=== PATIENT | female | born 1970 | race Caucasian/White ===

== ENCOUNTER 2020-07-05 21:10 | Inpatient (IN) | payer BC ==
[~2020-07-05 21:10] MED LIST: fentaNYL Citrate/PF 2,000 MCG in Sodium Chloride 0.9% 60 ML IV PRN
--- NOTE | 2020-07-05 22:30 | RAD ---
LEFT FOOT 3 VIEWS: Date: 07/05/2020 PROVIDED CLINICAL HISTORY: Pain status post injury. FINDINGS: There are displaced fractures of the second, third, and fourth metatarsal necks. There are displaced fractures involving the bases of the second, third and fourth metatarsals. There is a nondisplaced fr acture involving the base of the first metatarsal laterally. Alignment at the Lisfranc joint appears maintained. Nondisplaced fracture of the cuboid is also suspected. IMPRESSION: Metatarsal and cuboid fractures as above. POS: ARMANDO
--- NOTE | 2020-07-05 22:31 | RAD ---
LEFT ANKLE 3 VIEWS: Date: 07/05/2020 PROVIDED CLINICAL HISTORY: Pain status post injury. FINDINGS: There is no evidence for fracture or other acute osseous abnormality involving the ankle. Cuboid and first through fourth metatarsal base fractures are demonstrated. IMPRESSION: No evidence for an acute osseous abnormality involving the ankle. Midfoot and forefoot fractures as above. POS: ARMANDO
--- NOTE | 2020-07-05 22:33 | RAD ---
RIGHT KNEE RADIOGRAPHS 4 VIEWS: Date: 07/05/2020 PROVIDED CLINICAL HISTORY: Pain status post injury. FINDINGS: Patellofemoral joint space narrowing and multiple intra-articular bodies are seen. There is no eviden ce for fracture or other acute osseous abnormality. If there is persistent clinical concern, conserva tive management and follow-up imaging are advised. Patella laura is demonstrated. IMPRESSION: As above. POS: ARMANDO
[2020-07-05] MEDS ORDERED: Lorazepam 2 MG/ML VIAL ONE (22:38)
[2020-07-05] MEDS ORDERED: Ketorolac Tromethamine 30 MG/ML VIAL ONE (22:38)
--- NOTE | 2020-07-05 22:43 | RAD ---
PORTABLE CHEST: Date: 07/05/2020 PROVIDED CLINICAL HISTORY: Preop. FINDINGS: Cardiac and mediastinal silhouette is within normal limits. Lungs appear clear. No pleural fluid or p neumothorax apparent. IMPRESSION: No evidence for an acute cardiopulmonary process. POS: ARMANDO
[2020-07-05 23:11] LABS: #Eosinphils 0.2 thou/uL (0.0-0.7); #Lymphocytes 1.4 thou/uL (1.20-3.40); #Monocytes 0.5 thou/uL (0.11-0.59); #Neutrophils 8.3 thou/uL (1.40-6.50); %Basophils 0.2 % (0.0-1.0); %Eosinophils 1.5 % (0.0-10.0); %Lymphocytes 13.5 % (21.0-51.0); %Monocytes 4.9 % (0.0-10.0); %Neutrophils 79.9 % (42.0-75.0); Hemoglobin 10.6 g/dL (12.0-16.0); Mean Corpuscular HGB CONC 32.3 g/dL (32.0-36.0); Mean Corpuscular Hemoglobin 24.3 pg (27.0-31.0); Mean Corpuscular Volume 75.2 fL (78.0-98.0); Mean Platelet Volume 7.9 fL (7.4-10.4); Platelet Count 259 thou/uL (130-400); RBC Distribution Width 14.8 % (11.5-14.5); Red Blood Cell (RBC) Count 4.37 mill/uL (4.20-5.40); White Blood Cell (WBC) Count 10.4 thou/uL (4.8-10.8)
[2020-07-05 23:18] LABS: INR-International Normal Ratio 1.1; PTT 28.1 sec (22.9-36.1); Prothrombin Time 13.9 sec (12.0-14.7)
[2020-07-05 23:32] LABS: ALT (SGPT) 9 U/L (8-55); AST (SGOT) 14 U/L (5-34); Albumin 3.9 g/dL (3.5-5.0); Alkaline Phosphatase 67 U/L (40-110); Anion Gap 15 mmol/L (10-20); BUN (Urea Nitrogen) 15 mg/dL (7.0-18.7); Bilirubin, Total 0.3 mg/dL (0.2-1.2); CK (CPK) 172 U/L (29-168); Calc. Creatinine Clearance 0 mL/min (70-130); Calcium 8.6 mg/dL (7.8-10.44); Carbon Dioxide 23 mmol/L (22-29); Chloride 106 mmol/L (98-107); Estimated GFR-MDRD 61; Globulin 2.5 g/dL (2.4-3.5); Glucose 137 mg/dL (70-105); Potassium 3.6 mmol/L (3.5-5.1); Protein, Total 6.4 g/dL (6.0-8.3); Sodium 140 mmol/L (136-145)
[2020-07-05] MEDS ORDERED: HYDROmorphone 0.5 MG/0.5 ML SYRINGE ONE (23:35)
[2020-07-05] MEDS ORDERED: diphenhydrAMINE 25 MG CAP PO PRN ×2 (23:44→23:46)
[2020-07-05] MEDS ORDERED: diphenhydrAMINE 50 MG/ML VIAL IM PRN ×2 (23:44→23:46)
[2020-07-05] MEDS ORDERED: Naloxone HCl 0.4 mg/ml Vial IV PRN ×2 (23:44→23:46)
[2020-07-05] MEDS ORDERED: Promethazine HCl 25 MG/ML VIAL IM PRN ×2 (23:44→23:46)
[2020-07-05] MEDS ORDERED: Ondansetron PF 4 MG/2 ML Vial IVP PRN ×2 (23:44→23:46)
[2020-07-05] MEDS ORDERED: Zolpidem Tartrate 5 MG TAB PO PRN ×2 (23:44→23:46)
[2020-07-05] MEDS ORDERED: diphenhydrAMINE 50 MG/ML VIAL IVP PRN ×2 (23:44→23:46)
[2020-07-05] MEDS ORDERED: Communication Order-Pharmacy FS SCH ×2 (23:45)
[2020-07-06] MEDS ORDERED: Dextrose 50% Abboject 50 ML SYRINGE SLOW IVP PRN (01:12)
[2020-07-06] MEDS ORDERED: Dextrose 5% in Water 1,000 ML IV PRN (01:12)
[2020-07-06] MEDS ORDERED: Ondansetron PF 4 MG/2 ML Vial IVP PRN (01:12)
[2020-07-06] MEDS ORDERED: Ondansetron ODT 4 MG TAB PO PRN (01:12)
[2020-07-06 01:24] VITALS: BMI 41.0
[2020-07-06] MEDS: Sodium Chloride 0.9% 1,000 ML IV SCH ×2 (01:40→11:05)
--- NOTE | 2020-07-06 01:40 | HP ---
REQUESTING PHYSICIAN: David Ring MD ATTENDING SURGEON: Dr. Do. CONSULTATION: Orthopedics, Dr. Aguilar. HISTORY OF PRESENT ILLNESS: The patient is a 50-year-old woman, who was climbing up on a small step ladder when she got her foot caught in the hinge piece and fell backwards causing her to plantarflex her foot. She had immediate pain, was unable to ambulate. Her called 911 and she was brought to the emergency department, where she underwent evaluation and examination and was noted to have multiple metatarsal fractures of her left foot. The patient had a witnessed fall. She did not lose consciousness. She had no syncopal events prior to. We were asked to evaluate the patient for admission and obtain Orthopedic consultation. ALLERGIES: NONE. CURRENT MEDICATIONS: None. PAST MEDICAL HISTORY: Fractures to L4 and L5 as a young adult, gallstones. PAST SURGICAL HISTORY: , L4-L5 instrumentation, and cholecystectomy. SOCIAL HISTORY: The patient denies drug, tobacco, or alcohol use. 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 REVIEW OF SYSTEMS: A 10-point review of systems is negative as otherwise stated. PHYSICAL EXAMINATION: VITAL SIGNS: Blood pressure 116/75, heart rate 89, respirations 18, oxygen saturation is 98% on 2 L via nasal cannula, and temperature is 97.7. GENERAL: The patient is resting in bed. She upon my initial exam was very uncomfortable. She otherwise was awake, alert, conversant, appropriate. [place] Coma Scale is 15. HEENT: Head is normocephalic. Eyes, extraocular motion is intact. PERRLA bilaterally. Ears are atraumatic without discharge. Nose is atraumatic without discharge. Oropharynx is clear. NECK: Nontender. Trachea is midline with no JVD. CHEST: Clear to auscultation with good inspiratory and expiratory effort. HEART: Regular rate and rhythm. ABDOMEN: Soft, flat, nontender with active bowel sounds. PELVIS: Stable. EXTREMITIES: Neurovascularly intact x4. Left lower extremity has global swelling to the mid and forefoot. The patient is extremely tender to palpation to touch and to flexion or extension of her toes. The patient was getting medicated at the time of my exam. I did take her splint completely off to relieve any pressure that may be ongoing in light of her expanding hematoma. This definitely helped and the patient became more comfortable. LABORATORY FINDINGS: White blood cell count 10.4, hemoglobin 10.6, hematocrit 32.8, platelets 259. Sodium 140, potassium 3.6, chloride 106, CO2 of 23, BUN is 15, creatinine 0.97, glucose 137. LFTs are unremarkable. INR 1.1. RADIOGRAPHS: AP chest x-ray shows no evidence of acute cardiopulmonary process. Views of the right knee shows no evidence of fracture or acute osseous abnormality. Views of the left ankle show no evidence of acute osseous abnormality involving the ankle. There are midfoot and forefoot fractures noted. Views of the left foot show metatarsal and cuboid fractures. ASSESSMENT: 1. Status post ground level fall. 2. Multiple left midfoot and forefoot fractures. PLAN: Plan will be to admit the patient to the surgical floor. We have asked Anesthesia to provide her with a DATA CAPTURE CLERK tonight. We will monitor closely for compartment syndrome, albeit rare in this situation. We will keep the patient n.p.o. She will have pulmonary toilet, gastritis and mechanical VTE prophylaxis. Dr. Aguilar was made aware of this patient. The evaluation, examination, laboratory, and radiographic findings were discussed with attending surgeon after this dictation. Job ID: [id number]
[2020-07-06] MEDS ORDERED: Ketorolac Tromethamine 30 MG/ML VIAL IVP PRN (08:25)
--- NOTE | 2020-07-06 08:55 | CON ---
DATE OF CONSULTATION: CONSULTING PROVIDER: Justin Ayoub PA-C CHIEF COMPLAINT: Left foot pain. HISTORY OF PRESENT ILLNESS: Ms. Moreno is a 50-year-old female, who has injured herself last night. She fell from a ladder. Her left leg got trapped in the ladder. She landed hard and hit her right knee as well. She had severe pain in her left foot. X-rays have been taken, which have shown multiple fractures of the left foot. She has been admitted for pain control. She has been elevating her foot. She is feeling somewhat better this morning. She has severe swelling of the foot. She has had pain control through the night. She is on a TRANSCRIPT CLERK currently. ALLERGIES: NO KNOWN DRUG ALLERGIES. REVIEW OF SYSTEMS: Positive for left foot pain and right knee pain. Otherwise, negative 10-point review of systems. PAST MEDICAL HISTORY: Of previous fracture of L4 and L5 and cholecystitis. PAST SURGICAL HISTORY: Of cholecystectomy, , and L4-5 surgery. SOCIAL HISTORY: The patient denies tobacco, alcohol, or drug use. IMAGES: X-rays of the left foot demonstrate 2nd, 3rd, and 4th metatarsal neck fractures. The patient also has fractures of the 2nd, 3rd, and 4th metatarsal bases. The Lisfranc joint is not significantly widened. There is fracture of the base of the 2nd metatarsal, however. The cuboid looks abnormal with fracture as well. There is no dislocation. Overall alignment is preserved. Right knee x-ray shows evidence of osteoarthritis with narrowing of the patellofemoral joint, but no acute findings. PHYSICAL EXAMINATION: VITAL SIGNS: Temperature is 98.2, pulse is 69, respiratory rate of 18, oxygen saturation is 98%, and blood pressure is 97/63. GENERAL: She is alert and oriented, no apparent distress. RESPIRATORY: Breathing comfortably. ABDOMEN: Soft, nontender, nondistended. MUSCULOSKELETAL: The patient's right lower extremity has pain along the MCL. She has some pain with valgus stress. There is mild ecchymosis. The knee is ligamentously stable. No significant effusion. Left foot has a large amount of swelling. The skin is somewhat tight. She is able to gently flex and extend the toes. She reports feeling paresthesias to light touch of the lesser toes, but feels the greater toe normally. She is elevating the foot. No laceration or openings. IMPRESSION: Fall from ladder with left foot fractures including metatarsal fractures and cuboid. PLAN: At this point, I would like to obtain a CT scan of the foot to better evaluate the bony injury. I think she can be treated nonoperatively most likely. She will need strict elevation of the foot. We will place her in a bulky Hart dressing. She will need pain control. She can go ahead and eat and drink today. She likely will need to be here again tonight until her pain is under better control. She will need DVT prophylaxis. We will continue to follow. Job ID: [id number]
[2020-07-06] MEDS ORDERED: HYDROmorphone 0.5 MG/0.5 ML SYRINGE SLOW IVP SCH (11:00)
[2020-07-06] MEDS: Cyclobenzaprine 10 MG TAB PO PRN (11:02)
--- NOTE | 2020-07-06 11:39 | CT ---
CT LEFT FOOT: Date: 07/06/2020 PROVIDED CLINICAL HISTORY: Fracture. FINDINGS: There are transversely oriented fractures of the second, third, and fourth metatarsal necks. There is conspicuous plantar displacement of the metatarsal heads with rotation of the metatarsal heads in a plantar direction. There is a comminuted nondisplaced fracture involving the cuboid, which is intra-articular at the Lis franc joint. There is a displaced intra-articular fracture involving the plantar-medial base of the fourth metatar joaquin. There is a comminuted, intra-articular facture involving the base of the third metatarsal with about 3.0 mm of interarticular gap. There is a comminuted, not significantly displaced intra-articular fracture involving the base of the second metatarsal. There is a nondisplaced intra-articular fracture involving the medial aspects of the base of the firs t metatarsal. Alignment at the Lisfranc joint appears preserved in the absence of weightbearing. No additional frac ture is evident. IMPRESSION: Metatarsal and cuboid fractures as described. POS: ARMANDO
[2020-07-06] MEDS: Ketorolac Tromethamine 30 MG/ML VIAL IVP SCH ×3 (11:42→23:51)
[2020-07-06] MEDS: Acetaminophen 500 MG TAB PO SCH ×3 (13:14→23:50)
--- NOTE | 2020-07-06 14:12 | PRG ---
DATE OF SERVICE: 07/06/2020 SUBJECTIVE: Ms. Moreno is a 50-year-old woman, post injury day #1, status post fall with multiple mid and forefoot fractures. She is awake and alert this morning reporting severe left foot pain. The left foot has been immobilized in a splint and has been examined by Orthopedic Surgery this morning with the splint off and compartment syndrome has been excluded. Her [place] Coma Scale is 15. She otherwise moves all extremities. OBJECTIVE: VITAL SIGNS: This morning include blood pressure is 97/63, pulse is 69, respiratory rate is 18, temperature is 98.2 degrees Fahrenheit, and oxygen saturation is 98% on room air. HEENT: Reveals normocephalic and atraumatic. HEART: Reveals regular rate and rhythm. LUNGS: Clear to auscultation bilaterally. Her breathing is regular and unlabored. ABDOMEN: Soft, nontender, and nondistended. EXTREMITIES: Reveals 2+ radial and right pedal pulses present. Left foot is immobilized in a long splint. She has good capillary refill in all extremities. NEUROLOGIC: Reveals no focal deficits present. IMPRESSION: 1. Post injury day #1 status post fall. 2. Multiple left mid and forefoot fractures. 3. Acute post traumatic neuropathic pain. PLAN: We will revise current pain regimen and include coverage for neuropathic pain. The patient is certainly hemodynamically stable for any plan for definitive orthopedic surgical repair of the left foot fractures at the discretion of Orthopedic Surgery. Job ID: [id number]
[2020-07-06] MEDS: Pregabalin 50 MG CAP PO SCH ×2 (15:15→20:07)
[2020-07-06] MEDS: traMADol HCl 50 MG TAB PO SCH ×2 (17:50→23:50)
--- NOTE | 2020-07-06 19:36 | OP ---
DATE OF PROCEDURE: 07/06/2020 PREPROCEDURAL DIAGNOSIS: Left foot, midfoot fractures. POSTPROCEDURAL DIAGNOSIS: Left foot, midfoot fractures. OPERATIVE PROCEDURE: Application of short-leg splint, left lower extremity. 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 PROCEDURE IN DETAIL: The patient was positioned appropriately in supine position. The left lower extremity was then wrapped in a stockinette, overwrapped with Webril. Posterior splint was placed, wrapped with Goyo bandages and allowed to cure. The patient had poor pain tolerance and she was in a little bit of equinus and little plantar flexion, not optimal positioning, but her pain was difficult to manage throughout the procedure. The patient remained neurovascularly intact both before, during, and after the procedure. Job ID: [id number]
[2020-07-06] MEDS ORDERED: FLU VACC QS2020-21(6MOS UP)/PF 60 MCG/0.5 ML SYRINGE IM ONE (21:00)
[2020-07-07] MEDS: Calcium Carbonate 500 MG ChewTAB PO PRN ×2 (03:56→06:20)
[2020-07-07] MEDS: traMADol HCl 50 MG TAB PO SCH ×4 (06:15→23:31)
[2020-07-07] MEDS: Acetaminophen 500 MG TAB PO SCH ×4 (06:16→23:30)
[2020-07-07] MEDS: Ketorolac Tromethamine 30 MG/ML VIAL IVP SCH ×2 (06:16→13:11)
[2020-07-07] MEDS: Pregabalin 50 MG CAP PO SCH ×3 (08:56→20:35)
[2020-07-07] MEDS: Polyethylene Glycol 3350 17 GM Packet PO SCH (08:57)
[2020-07-07] MEDS: Senokot S 8.6-50 MG TAB PO SCH ×2 (08:57→20:35)
[2020-07-07] MEDS ORDERED: Albuterol Sulfate 2.5 mg/3 ml Neb NEB PRN (18:56)
[2020-07-07] MEDS: Cyclobenzaprine 10 MG TAB PO PRN (20:34)
[2020-07-07] MEDS ORDERED: Enoxaparin Sodium 40 MG/0.4 ML SYRINGE SC SCH (21:00)
[2020-07-07] MEDS: Ibuprofen 800 MG TAB PO SCH (21:20)
--- NOTE | 2020-07-08 05:10 | PRG ---
DATE OF SERVICE: 07/07/2020 SUBJECTIVE: Ms. Moreno is a 50-year-old female, now post-injury day #2 after a fall with multiple mid and forefoot fractures. She is awake and alert this morning and appears much more comfortable than yesterday. She does continue to report left foot pain. It is improved when she is at rest, but is increased when she has her foot in the dependent position, particularly when using assistive devices as provided by Physical Therapy. Yesterday, Orthopedic Surgery replaced her splint, which was a particularly painful experience for the patient. This morning, her pain is doing somewhat better. She is no longer using a CATTLE DRIVER. She is on several scheduled oral agents. Today, she reports that she feels spasming in her foot occasionally, which is sharp, stabbing, and severe. She reports that she did not eat much yesterday because she was n.p.o., waiting to find out if she would need a procedure and with the use of the CATTLE DRIVER medication, she did not really feel like eating. This morning, she has not yet eaten breakfast, but she does plan to eat lunch. She is voiding normally. She has not yet had a bowel movement. She would ideally like to go home upon discharge, although it is not yet clear whether or not she will be able to do this safely. OBJECTIVE: VITAL SIGNS: Temperature 98.3, pulse 70, respirations 16, O2 of 95% on room air, and blood pressure 104/69. GENERAL: She is awake, alert, resting comfortably in bed. GCS 15. HEENT: She is normocephalic and atraumatic on the head. CHEST: Her breathing is regular and unlabored with equal rise and fall of the chest. ABDOMEN: Soft, nontender. EXTREMITIES: Her left foot and lower leg are in a splint this morning. She is otherwise neurovascularly intact and moving all 4 extremities. NEUROLOGIC: She has no focal deficits and is alert and oriented x3. ASSESSMENT: 1. Post-injury day #2 status post fall. 2. Fracture of the second, third, and fourth metatarsal neck. 3. Fracture of the second, third, and fourth metatarsal bases. 4. Cuboid fracture. 5. Acute posttraumatic neuropathic pain. PLAN: We will continue with Flexeril for spasm-like pain as needed. Discussed with patient that this medication is as needed and not scheduled. If she feels like she needs it, she will need to ask for it. Today, we will talk with Case Management regarding disposition. The patient would like to go home upon discharge, but ultimately may need inpatient rehab for a safe discharge in order to regain some strength and to have adequate pain control in the process. The patient expresses understanding of this plan. We will also start a bowel regimen today. Pending formal recommendation that this will be a nonoperative fracture, we would also like to begin DVT prophylaxis on this patient. Job ID: [id number]
[2020-07-08] MEDS: traMADol HCl 50 MG TAB PO SCH ×2 (06:07→12:44)
[2020-07-08] MEDS: Ibuprofen 800 MG TAB PO SCH ×2 (06:08→14:41)
[2020-07-08] MEDS: Acetaminophen 500 MG TAB PO SCH ×2 (06:08→12:43)
[2020-07-08] MEDS: Pregabalin 50 MG CAP PO SCH ×2 (09:24→14:41)
[2020-07-08] MEDS: Senokot S 8.6-50 MG TAB PO SCH (09:24)
[2020-07-08] MEDS: Polyethylene Glycol 3350 17 GM Packet PO SCH (09:24)
[2020-07-08 12:46] VITALS: BP 111/75; TEMP 98.3
--- NOTE | 2020-07-09 01:27 | DIS ---
DATE OF ADMISSION: 07/05/2020 DATE OF DISCHARGE: 07/08/2020 ADMITTING ATTENDING: Julio Do MD DISCHARGE ATTENDING: Dr. Olvera. CONSULT: Orthopedics, Dr. Aguilar. PROCEDURE: Short-leg splint of the left lower extremity. IMAGING: Left ankle x-ray: No acute fractures involving the ankle. Right knee x-ray: Patellofemoral joint space narrowing with multiple intra-articular bodies, no acute fracture or other acute osseous abnormalities. Left foot x-ray: Displaced fractures of the second, third, and fourth metatarsal necks; displaced fractures involving the second, third, and fourth metatarsal base; nondisplaced fracture at the base of the first metatarsal laterally; alignment at the Lisfranc joint maintained; nondisplaced fracture of the cuboid. CT of the left lower extremity without contrast: Transverse fractures of the second, third, and fourth metatarsal necks; plantar displacement of the metatarsal heads with rotation of the metatarsal heads in a plantar direction; comminuted nondisplaced fracture involving the cuboid; displaced intra-articular fracture at the plantar medial base of the fourth metatarsal; comminuted intra-articular fracture at the base of the third metatarsal; comminuted not significantly displaced intra-articular fracture at the base of the second metatarsal; nondisplaced intra-articular fracture involving the base of the first metatarsal with Lisfranc joint preserved in the absence of weightbearing. PRIMARY DIAGNOSIS: Status post fall with multiple fractures to the left foot. SECONDARY DIAGNOSES: 1. Fracture of the second, third, and fourth metatarsal neck. 2. Fracture of the second, third, and fourth metatarsal base. 3. Cuboid fracture. 4. Nondisplaced fracture of the first metatarsal base. 5. Acute post-traumatic neuropathic pain. DISCHARGE MEDICATIONS: 1. Albuterol inhaler q.4 hours p.r.n. 2. Flexeril 10 mg p.o. t.i.d. p.r.n. #21. 3. Lovenox 40 mg subcu once daily for 30 days. 4. Lyrica 50 mg p.o. t.i.d. for 30 days. 5. MiraLAX 17 g p.o. daily. 6. Ibuprofen 800 mg p.o. q.8 hours. 7. Tylenol 1000 mg p.o. q.6 hours. 8. Tramadol 50 mg p.o. q.6 hours p.r.n. for 14 days. Discontinued medications: None. HISTORY OF PRESENT ILLNESS AND HOSPITAL COURSE: This is a 50-year-old female, who presented after a fall from a step ladder resulting in multiple mid and forefoot fractures. She had imaging studies including x-ray and CT with results as above. Orthopedic Surgery was consulted and determined that she did not need any operative management. Physical Therapy and Occupational Therapy were consulted to work with her. She did struggle with pain control during part of her admission, but has now been stabilized on an oral pain regimen. It is recommended that she go to rehab upon discharge for further strengthening, crutch training, and pain control. However, the patient is resistant to this. Prior to discharge, she did demonstrate that she was able to use her crutches on stairs similar to those in her home. PHYSICAL EXAMINATION: VITAL SIGNS: Temperature 98.4, heart rate 67, respirations 16, O2 saturation 94 on room air, and blood pressure 114/75. GENERAL: She is awake, alert, resting comfortably in bed. GCS is 15. HEENT: She is normocephalic and atraumatic. CHEST: Her breathing is regular and unlabored with equal rise and fall of the chest. ABDOMEN: Soft and nontender. EXTREMITIES: Her left foot and lower leg remain in a splint this morning. She is otherwise neurovascularly intact, moving all 4 extremities. NEUROLOGIC: She has no focal deficits and is alert and oriented x3. DISPOSITION: Stable. DISCHARGE INSTRUCTIONS: 1. Location: Home. 2. Diet: Regular diet. 3. Activity: As tolerated. She should remain nonweightbearing of the left foot. 4. Followup: She will need to follow up with Orthopedic Surgery, Dr. Aguilar, within the next 2 to 3 weeks. She may also follow up with Dr. Olvera and with her primary care provider. Job ID: [id number] [facility]
== END 2020-07-08 15:50 | disposition home or self-care (01) | DRG 563 ==
LOC: ERS 21:10 → SJJU 23:52
PROVIDERS: ADMIT Surgery; ATTEND Surgery
PROC: 2W3TX1Z Immobilization of Left Foot using Splint (ICD-10-PCS; principal; 2020-07-06)
DX: S92.322A Displaced fracture of second metatarsal bone, left foot, initial encounter for closed fracture (principal); S92.332A Displaced fracture of third metatarsal bone, left foot, initial encounter for closed fracture; S92.342A Displaced fracture of fourth metatarsal bone, left foot, initial encounter for closed fracture; S92.315A Nondisplaced fracture of first metatarsal bone, left foot, initial encounter for closed fracture; M79.2 Neuralgia and neuritis, unspecified; S92.215A Nondisplaced fracture of cuboid bone of left foot, initial encounter for closed fracture; W11.XXXA Fall on and from ladder, initial encounter; Z90.49 Acquired absence of other specified parts of digestive tract
CPT/HCPCS: 29515; 36415; 71045; 80053; 82550; 85025; 85610; 85730; 93005; 96374; 96375; G0390; J1170; J1650; J1885; J2060; J2405; J3010; J3490; Q0163

== ENCOUNTER 2021-01-13 13:55 | Outpatient (CLI) | payer BC ==
[2021-01-14 00:03] LABS: SARS-CoV-2 PCR by NAA Not Detected (NotDetected)
== END 2021-01-13 13:56 | disposition home or self-care (01) ==
LOC: LABBT 13:55
PROVIDERS: ATTEND Orthopaedic Surgery
DX: Z01.812 Encounter for preprocedural laboratory examination (principal); G57.82 Other specified mononeuropathies of left lower limb; Z20.822 Contact with and (suspected) exposure to COVID-19
CPT/HCPCS: U0003; U0005

== ENCOUNTER 2021-01-18 10:18 | Day surgery (SDC) | payer BC ==
[2021-01-15 12:00] VITALS: BMI 36.1
[2021-01-18] MEDS ORDERED: Midazolam HCl 2 mg/2 ml Vial ONE (12:24)
[2021-01-18] MEDS ORDERED: Famotidine/PF 20 mg/2ml Vial ONE (12:24)
[2021-01-18] MEDS ORDERED: Bupivacaine PF 0.5% 30 ML VIAL ONE (12:38)
[2021-01-18] MEDS ORDERED: Fentanyl 100 MCG/2 ML VIAL ONE ×2 (12:45→14:14)
[2021-01-18] MEDS ORDERED: Dexamethasone 20 MG/5 ML VIAL ONE (12:53)
[2021-01-18] MEDS ORDERED: Lidocaine 1% PF 5 ML VIAL ONE (12:53)
[2021-01-18] MEDS ORDERED: Ketorolac Tromethamine 30 MG/ML VIAL ONE (12:53)
[2021-01-18] MEDS ORDERED: Metoclopramide HCl 10 MG/2 ML VIAL ONE (12:53)
[2021-01-18] MEDS ORDERED: PROPOFOL 200 MG/20 ML VIAL ONE (12:53)
[2021-01-18] MEDS ORDERED: Ondansetron PF 4 MG/2 ML Vial ONE (12:53)
[2021-01-18] MEDS ORDERED: HYDROcodone/Acetaminophen 5/325 mg Tablet ONE ×2 (15:49→15:50)
== END 2021-01-18 16:07 | disposition home or self-care (01) ==
LOC: SDC 10:18
PROVIDERS: ATTEND Orthopaedic Surgery
PROC: 01NH0ZZ Release Peroneal Nerve, Open Approach (ICD-10-PCS; principal; 2021-01-18)
PROC: 0QBP0ZZ Excision of Left Metatarsal, Open Approach (ICD-10-PCS; principal; 2021-01-18)
DX: S92.34 Fracture of fourth metatarsal bone (principal); Z98.84 Bariatric surgery status; W11.XXXD Fall on and from ladder, subsequent encounter
CPT/HCPCS: J0690; J1100; J1885; J2250; J2405; J2704; J2765; J3010; S0020; S0028